=== PATIENT | male | born 1960 | race Caucasian/White ===

== ENCOUNTER 2016-10-16 13:17 | Emergency (ER) | payer OTHER ==
[~2016-10-16] VITALS: Ht 172.7 cm; Wt 93.9 kg
[~2016-10-16 13:17] MED LIST: ATOR-22 PO; DABI1CAP PO; FLEC150T PO; METO100T44 PO; POTA20TA16 PO; TRAZ50TA35 PO
[2016-10-16 13:23] VITALS: TEMP 36.5; Ht 172.7 cm; Wt 93.9 kg
[2016-10-16] MEDS ORDERED: SODIUM CHLORIDE 0.9% 1000ML 1,000 ML IV STA (13:30)
--- NOTE | 2016-10-16 13:34 | EMERGENCY ROOM VISIT NOTE ---
History Report prepared by Nidhi: Sandy Alcaraz Under the Supervision of: Dr. Derek Sinclair M.D. First contact with patient: 13:24 Chief Complaint: IRREGULAR HEARTBEAT Stated Complaint: A-FIB, SOB Nursing Triage Summary: triage note: Pt reports "my heart is in atrial fibrillation, it woke me up last night." History of Present Illness The patient is a 56 year old male who presents to the Emergency Room with complaints of an episode of atrial fibrillation beginning last night. The patient was woken up by the irregular heartbeat. He states that this has happened before many times. He has been cardioverted 7 times with the last time being a few years ago. He is followed by Dr. Ferrell - Cardiology. The patient is experiencing weakness, fatigue and shortness of breath. He states that these symptoms are similar to his past experiences. Source of History: patient Onset: last night Position: other (global) Quality: other (atrial fibrillation) Timing: other (episode) Associated Symptoms: + SOB, + fatigue, + weakness Review of Systems See HPI for pertinent positives & negatives. A total of 10 systems reviewed and were otherwise negative. Past Medical & Surgical Medical Problems: (1) Atrial Fibrillation (2) Esophageal Reflux (3) Hypertension Nos (4) Pneumonia, Organism Nos Family History Hypertension Social History Smoking Status: Current Every Day Smoker Alcohol Use: none Drug Use: none Marital Status: single Housing Status: lives alone Occupation Status: employed Current/Historical Medications Scheduled Atorvastatin (Lipitor), 20 MG PO HS Dabigatran Etexilate Mesylate (Pradaxa), 150 MG PO BID Flecainide Acetate (Flecainide Acetate), 150 MG PO BID Metoprolol Succ (Toprol Xl) (Toprol-Xl ), 100 MG PO BID Potassium Ext Rel (Klor-Con), 20 MEQ PO DAILY Allergies Coded Allergies: Sulfa Drugs (Verified Allergy, Severe, HIVES, 06/01/09) Physical Exam Vital Signs Date Time Temp Pulse Resp B/P (MAP) Pulse Ox O2 Delivery O2 Flow Rate FiO2 10/16/16 15:14 72 18 128/93 95 10/16/16 14:08 96 Room Air 10/16/16 13:40 78 10/16/16 13:30 108 10/16/16 13:23 36.5 127 18 130/81 93 Room Air Physical Exam GENERAL: Patient is well appearing and mildly anxious. HEENT: No acute trauma, normocephalic atraumatic, mucous membranes dry, no nasal congestion, no scleral icterus. NECK: No stridor, no adenopathy, no meningismus, trachea is midline. LUNGS: No dyspnea. Clear to auscultation and equal bilaterally. No wheeze, no rhonchi. HEART: Tachycardic rate and irregular rhythm. No murmurs, rubs, gallops appreciated. ABDOMEN: Soft, nontender, bowel sounds positive, no masses appreciated, no peritonitis. BACK: No midline tenderness, no CVA tenderness EXTREMITIES: Normal motion all extremities, no cyanosis, no edema. NEUROLOGIC: Alert and oriented, no acute motor or sensory deficits, no focal weakness, cranial nerves grossly intact. SKIN: No rash, no jaundice, no diaphoresis. Medical Decision & Procedures ER Provider Diagnostic Interpretation: X ray results are stated below per my interpretation and the radiologist's interpretation. CHEST ONE VIEW PORTABLE HISTORY: Atypical Chest Pain COMPARISON: Chest 01/07/2013. FINDINGS: The lungs are clear. Cardiac silhouette is normal in size. No pleural effusions. No pneumothorax. Old left clavicle fracture. IMPRESSION: No acute process. Electronically signed by: Tani Barrios M.D. 10/16/2016 1:52 PM Dictated Date/Time: 10/16/2016 1:51 PM Laboratory Results 10/16/16 13:43 Red Blood Count 5.13, Mean Corpuscular Volume 87.7, Mean Corpuscular Hemoglobin 31.0, Mean Corpuscular Hemoglobin Concent 35.3, Mean Platelet Volume 10.3, Neutrophils (%) (Auto) 64.5, Lymphocytes (%) (Auto) 26.3, Monocytes (%) (Auto) 7.4, Eosinophils (%) (Auto) 1.1, Basophils (%) (Auto) 0.3, Neutrophils # (Auto) 7.55, Lymphocytes # (Auto) 3.08, Monocytes # (Auto) 0.86, Eosinophils # (Auto) 0.13, Basophils # (Auto) 0.03 10/16/16 13:43 Test 10/16/16 13:43 White Blood Count 11.70 K/uL (4.8-10.8) Red Blood Count 5.13 M/uL (4.7-6.1) Hemoglobin 15.9 g/dL (14.0-18.0) Hematocrit 45.0 % (42-52) Mean Corpuscular Volume 87.7 fL (80-100) Mean Corpuscular Hemoglobin 31.0 pg (25-34) Mean Corpuscular Hemoglobin Concent 35.3 g/dl (32-36) Platelet Count 261 K/uL (130-400) Mean Platelet Volume 10.3 fL (7.4-10.4) Neutrophils (%) (Auto) 64.5 % Lymphocytes (%) (Auto) 26.3 % Monocytes (%) (Auto) 7.4 % Eosinophils (%) (Auto) 1.1 % Basophils (%) (Auto) 0.3 % Neutrophils # (Auto) 7.55 K/uL (1.4-6.5) Lymphocytes # (Auto) 3.08 K/uL (1.2-3.4) Monocytes # (Auto) 0.86 K/uL (0.11-0.59) Eosinophils # (Auto) 0.13 K/uL (0-0.5) Basophils # (Auto) 0.03 K/uL (0-0.2) RDW Standard Deviation 44.2 fL (36.4-46.3) RDW Coefficient of Variation 13.7 % (11.5-14.5) Immature Granulocyte % (Auto) 0.4 % Immature Granulocyte # (Auto) 0.05 K/uL (0.00-0.02) Prothrombin Time 12.0 SECONDS (9.0-12.0) Prothromb Time International Ratio 1.1 (0.9-1.1) Activated Partial Thromboplast Time 58.8 SECONDS (21.0-31.0) Partial Thromboplastin Ratio 2.3 Anion Gap 10.0 mmol/L (3-11) Est Creatinine Clear Calc Drug Dose 97.4 ml/min Estimated GFR () 105.2 Estimated GFR (Non- 90.8 BUN/Creatinine Ratio 10.5 (10-20) Calcium Level 8.8 mg/dl (8.5-10.1) Magnesium Level 2.1 mg/dl (1.8-2.4) Total Creatine Kinase 159 U/L (39-308) Creatine Kinase MB 3.1 ng/ml (0.5-3.6) Creatine Kinase MB Ratio 1.9 (0-3.0) Troponin I < 0.015 ng/ml (0-0.045) Thyroid Stimulating Hormone (TSH) 0.778 uIu/ml (0.300-4.500) Free Thyroxine 1.07 ng/dl (0.80-1.60) Laboratory results as reviewed by me. Medications Administered Medications (Trade) Dose Ordered Sig/Ric Route Start Time Stop Time Status Last Admin Dose Admin Sodium Chloride 1,000 ml @ 999 mls/hr Q1H1M STAT IV 10/16/16 13:30 10/16/16 14:30 DC 10/16/16 13:55 999 MLS/HR ECG Indication: palpitations Rate (beats per minute): 96 Rhythm: atrial fibrillation Findings: no acute ischemic change, other (QTC 416) Change: 2nd ECG: NSR, rate of 67, no ectopy, no acute ischemic changes. ED Course 1326: The patient was evaluated in room A2. A complete history and physical exam was performed. 1330: Sodium Chloride 1,000 ml @ 999 mls/hr IV. 1338: Dr. Ferrell - Cardiology was paged but is out of town this week. 1359: The patient has returned to normal sinus rhythm. 1445: Reevaluated the patient. Discussed results and discharge instructions: He verbalized understanding and agreement. The patient is ready for discharge. Medical Decision Differential: NSR, SVT, PACs, PVCs, Cardiac Dysrhythmia, Endocrine Dysfunction, Electrolyte/Metabolic Abnormality, Pulmonary Embolism, Infectious, GI, amonst other pathologies entertained. Medication Reconciliation: I attest that I have personally reviewed the patient 's current medication list. 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 56 y rold male arrives in afib noting he can tell. He is without other symptoms. Admits exertion in heat last few days. Afib resolved in ED with fluids and he is requesting discharge. Labs unremarkable. Feeling well. Knows this well and feels comfortable going home. Already on blood thinner. Stable at discharge and in no distress. Impression Primary Impression: PAF (paroxysmal atrial fibrillation) Scribe Attestation The scribe's documentation has been prepared under my direction and personally reviewed by me in its entirety. I confirm that the note above accurately reflects all work, treatment, procedures, and medical decision making performed by me. Departure Information Dispostion Home / Self-Care Referrals Dave Palma M.D. (PCP) Patient Instructions My [facility] Additional Instructions Keep well hydrated and avoid over exertion the next 24 hours. We are always here to help if symptoms return. Your blood pressure was elevated during this visit. This is quite common in many people who are being evaluated in the Emergency Department for many reasons. However, it is important that you have your Primary Care Provider recheck your blood pressure and discuss whether treatment will be needed. 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 If you develop severe headaches, chest pain, weakness in arms or legs, or other concerning symptoms call 911.
--- NOTE | 2016-10-16 13:54 | DIAGNOSTIC IMAGING REPORT ---
CHEST ONE VIEW PORTABLE HISTORY: Atypical Chest Pain COMPARISON: Chest 01/07/2013. FINDINGS: The lungs are clear. Cardiac silhouette is normal in size. No pleural effusions. No pneumothorax. Old left clavicle fracture. IMPRESSION: No acute process. Electronically signed by: Tani Barrios M.D. 10/16/2016 1:52 PM Dictated Date/Time: 10/16/2016 1:51 PM
[2016-10-16 14:00] LABS: BASO % 0.3 %; BASO ABS # 0.03 K/uL (0-0.2); COMPLETE YES; EOS % 1.1 %; IG% 0.4 %; LYMPH % 26.3 %; LYMPH ABS # 3.08 K/uL (1.2-3.4); MEAN CELL VOLUME 87.7 fL (80-100); MEAN CORPUSCULAR HGB CONC 35.3 g/dl (32-36); MEAN PLATELET VOLUME 10.3 fL (7.4-10.4); MONO % 7.4 %; NEUT % 64.5 %; PLATELET COUNT 261 K/uL (130-400); RED BLOOD COUNT 5.13 M/uL (4.7-6.1)
[2016-10-16 14:08] VITALS: O2SAT 96
[2016-10-16 14:17] LABS: INR 1.1 (0.9-1.1)
[2016-10-16 14:23] LABS: BLOOD UREA NITROGEN 10 mg/dl (7-18); BUN/CREATININE RATIO 10.5 (10-20); CALCIUM 8.8 mg/dl (8.5-10.1); CARBON DIOXIDE 22 mmol/L (21-32); CHLORIDE 109 mmol/L (98-107); CREATININE 0.93 mg/dl (0.60-1.40); GLUCOSE 112 mg/dl (70-99); MAGNESIUM 2.1 mg/dl (1.8-2.4); POTASSIUM 4.2 mmol/L (3.5-5.1); SODIUM 141 mmol/L (136-145)
[2016-10-16 14:32] LABS: PARTIAL THROMBOPLASTIN RATIO 2.3
[2016-10-16 14:34] LABS: CKMB/CK RATIO 1.9 (0-3.0); THYROID STIMULATING HORMONE 0.778 uIu/ml (0.300-4.500)
[2016-10-16 15:14] VITALS: BP 128/93; PULSE 72; O2SAT 95
== END 2016-10-16 15:03 | disposition home or self-care (01) ==
LOC: C.EDB 13:18 → C.EDA 15:03
DX: I48.91 Unspecified atrial fibrillation (principal); K21.9 Gastro-esophageal reflux disease without esophagitis; I10 Essential (primary) hypertension; F17.200 Nicotine dependence, unspecified, uncomplicated; Z79.899 Other long term (current) drug therapy; Z88.2 Allergy status to sulfonamides; Z82.49 Family history of ischemic heart disease and other diseases of the circulatory system

== ENCOUNTER 2018-08-30 09:08 | Inpatient (IN) ==
--- OUTSIDE RECORDS SUMMARY | 2018-08-30 09:11 | External Medical Summary | Continuity of Care Document ---
:1960 Author Name Aashish Olivo, Provider Address Unavailable Unavailable , Care Team Providers Name Role Phone Rashid Gandhi PA-C Unavailable [email or web address] Colleen Saldana PA-C Unavailable [email or web address] Alexander WILLIS Unavailable [email or web address] Martínez Ferrell M.D. Unavailable [email or web address] Karen ALVAREZ M.D. 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) Encounter for screening for malignant neoplasm of prostate ( V76.44) (Z12.5) Encounter for screening for malignant neoplasm of colon (V76 .51) (Z12.11) Strain, infraspinatus (840.3) (S46.919A) Dyslipidemia (272.4) (E78.5) Paroxysmal atrial fibrillation (427.31) (I48.0) Hypertension (401.9) (I10) On anticoagulant therapy (V58.61) (Z79.01) Plantar fasciitis, right (728.71) (M72.2) Low back pain radiating to right leg (724.2) (M54.5) Allergies and Adverse Reactions Sulfa Drugs (Allergy) Reaction: Hives Medications Flecainide Acetate 150 MG Oral Tablet; TAKE ONE TABLET BY MOUTH EVERY 12 HOURS ALBA Munoz Start: 19-Jan-2013 Quantity: 60 Refills: 11 Klor-Con M20 20 MEQ Oral Tablet Extended Release; TAKE ONE TABLET BY MOUTH ONCE DAILY ALBA Gandhi Start: 11-Jul-2013 Quantity: 30 Refills: 5 Metoprolol Succinate ER 100 MG Oral Tabl et Extended Release 24 Hour; TAKE ONE TABLET BY MOUTH TWICE DAILY ALBA Gandhi Start: 02-Aug-2013 Quantity: 60 Refills: 11 Eliquis 5 MG Oral Tablet; TAKE 1 TABLET BY MOUTH TWICE DAILY Geovani Ferrell Start: 15-Mar-2018 Quantity: 60 Refills: 11 Atorvastatin Calcium 20 MG Oral Tablet; take 1 tablet by mouth once daily ALBA Saldana Start: 25-Mar-2018 Quantity: 30 Refills: 5 Vitamin C TABS; TAKE 1 TABLET DAILY. Refills: 0 Procedures In-House EKG ([facility]) Total Component Date: 16-Aug-2018 History of Atrial Cardioversion Status: Completed Immunizations Influenza On: 26-Feb-2011 15:26 Lot #: [id number], [employer]UR Influenza On: 25-Jan-2013 14:11 Lot #: [id number], [employer]FI PASTEUR Family History Brother Family history of Hemochromatosis Status: Active Mother Family history of Paroxysmal Atrial Fibrillation Status: Act todd Social History - Smoking Status Former smoker Interventions Labs/Procedures/ImagingIn-House EKG ([facility]) Total Component; To Be Done: 16 Aug 2018InstructionsHigh-BMI is above normal parameters and patient education given regarding risks of abnormal BMI and associated educational information links. Patient offered dietitian referral.; Done: 16 Aug 2018Discussion/Summary #1. Atrial fibrillation: He continues to have occasional episodes of atrial fibrillation, but it would be very difficult to eliminate them entirely and I do not think we should try. Other family members have had atrial fibrillation and he is not terribly interested in more aggressive approach and neither do I think we should do that now. He should remain on anticoagulation, although with his [id number] score and brief episodes we might be able to get by without it but it is a potential risk. He issatisfied with his current treatment. #2. His blood pressure has been for the most part well controlled on minimal antihypertensives which we need also for rate control. #3. Anticoagulation: He is on Eliquis, he had been getting samples from a physician he knew but ricarda longer can get them from that source. Hopefully he can afford the medication and we are sending it in for him to see how much it would cost. He is not having any side effects on it nor is he having any bleeding. I would like him to come back in for followup in 12 months. Thank you for allowing me to participate in his care. Plan of Treatment Planned Encounters Follow-up visit in 1 year Request Planned Observations Planned Goals not documented Results In-House EKG ([facility]) Total Laboratory: [facility] Component (Pending) 16-Aug-2018 10:08 In-House EKG Total Component [facility]-Cardio logy Test Date: [id number] Name: ALEKSANDRA PALM Detment: Room: Gender: Male Real Estate Executive Assistant: Nilson DominguezB: 1960 Requested By: Anaya Ramires Number: [id number] Reading MD: Seth Ferrell MeasurementsIntervals [place] Rate: 54 P: 5 5PR: 185 QRS: 60QRSD: 97 T: 35QT: 396 QTc: 383 Interpretive StatementsSINUS BRADYCARDIABORDERLINE ECGReviewed by Comed to ECG 01/13/2017 10:29:03Sinus rhythm no longer presentSi nus arrhythmia no longer present Vital Signs 16-Aug-2018 9:53 Systolic 124 mm[Hg] Comments: Location: LUE; Position: Sitting Diastolic 90 mm[Hg] Comments: Location: LUE; Position: Sitting Heart Rate 64 /min Comments: Location: L Radial; Height 67.75 in Weight 210.4 lb BMI Calculated 32.23 kg/m2 BSA Calculated 2.08 m2 Encounters Appointment; Seth Ferrell M.D. 21-Apr-2018 10:00 Encounter Diagnosis: Problem not documented Appointment; Bre Oconnell CRNP 15-Mar-2018 9:00 Encounter Diagnosis: Problem not documented Appointment; Seth Ferrell M.D. 08-Feb-2018 13:00 Encounter Diagnosis: Problem not documented Appointment; Seth Ferrell M.D. 13-Jan-2017 10:30 Encounter Diagnosis: Problem not documented Appointment; Echo/Stress, Echo/Stress 06-Jan-2017 11:00 Encounter Diagnosis: Problem not documented Appointment; Bre Oconnell CRNP 30-Dec-2016 13:00 Encounter Diagnosis: Problem not documented Appointment; Seth Ferrell M.D. 16-Aug-2018 10:00 Encounter Diagnosis: Problem not documented
[2018-08-30] MEDS ORDERED: SODIUM CHLORIDE 0.9% 1000ML 1,000 ML IV SCH (09:30)
--- NOTE | 2018-08-30 09:49 | XRay Report ---
XR chest 1V portable CLINICAL HISTORY: Chest Pain dyspnea COMPARISON STUDY: 10/16/2016 FINDINGS: The bones soft tissues and hemidiaphragms are normal. The cardiomediastinal silhouette is n ormal. The lungs are clear. The pulmonary vasculature is normal. IMPRESSION: Negative chest. The above report was generated using voice recognition software. It may contain grammatical, syntax or spelling errors. Electronically signed by: Awais Abernathy M.D. 08/30/2018 9:47 AM
[2018-08-30 09:50] LABS: Alanine Aminotransferase 35 U/L (12-78); Albumin Level 3.6 gm/dl (3.4-5.0); Aspartate Aminotransferase 29 U/L (15-37); BUN Creatinine Ratio 12.3 (10-20); Blood Urea Nitrogen 10 mg/dl (7-18); Calcium 8.8 mg/dl (8.5-10.1); Carbon Dioxide 21 mmol/L (21-32); Chloride 110 mmol/L (98-107); Creatinine Clr Calc Pharmacy 102.8 ml/min; Est GFR (African American) 110.5; Est GFR (Non-African American) 95.4; Glucose 131 mg/dl (70-99); Potassium 4.1 mmol/L (3.5-5.1); Sodium 140 mmol/L (136-145)
[2018-08-30 09:55] LABS: Alkaline Phosphatase 76 U/L (45-117); Bilirubin,Total 0.4 mg/dl (0.2-1); Globulin 3.5 gm/dl (2.5-4.0); Total Protein 7.1 gm/dl (6.4-8.2); Troponin I < 0.015 ng/ml (0-0.045)
[2018-08-30 09:56] LABS: Prothrombin Time 10.7 Seconds (9.0-12.0)
[2018-08-30 10:05] LABS: Basophils # (auto) 0.03 K/uL (0-0.2); Basophils % (auto) 0.3 %; Eosinophils # (auto) 0.09 K/uL (0-0.5); Eosinophils % (auto) 0.8 %; Hemoglobin 16.8 g/dL (14.0-18.0); Immature Granulocytes # (auto) 0.06 K/uL (0.00-0.02); Immature Granulocytes % (auto) 0.5 %; Lymphocytes # (auto) 2.14 K/uL (1.2-3.4); Lymphocytes % (auto) 18.3 %; Mean Corpuscular Volume 87.8 fL (80-100); Mean Platelet Volume 10.7 fL (7.4-10.4); Monocytes # (auto) 0.75 K/uL (0.11-0.59); Monocytes % (auto) 6.4 %; Neutrophils # (auto) 8.62 K/uL (1.4-6.5); Neutrophils % (auto) 73.7 %; Platelet Count 277 K/uL (130-400); RDW Coefficient of Variation 13.7 % (11.5-14.5); RDW Standard Deviation 43.9 fL (36.4-46.3); Red Blood Count 5.47 M/uL (4.7-6.1); White Blood Count 11.69 K/uL (4.8-10.8)
[2018-08-30] MEDS ORDERED: dilTIAZem HCl 125 MG in DEXTROSE 5% 100 ML IV SCH (10:45)
[2018-08-30] MEDS ORDERED: dilTIAZem HCl 5 MG/ML 5 ML VIAL IV STA (10:45)
--- NOTE | 2018-08-30 11:07 | History & Physical Report ---
Date of Service August 30, 2018 Assessment & Plan (1) A-fib: - Admit to tele - Afib with RVR today, paroxysmal for many years: Follows with Dr. Ferrell as an outpatient - it was discussed at his last outpatient appointment that he was not interested in more aggressive therapy to prevent episodes and was going to continue on anticoagulation with Eliquis 5 mg BID , however pt is open to cardioversion as he has underwent this multiple times in the past where it was successful for longer periods of time. Last cardioversion 01/07/13. - Trend trop, initial was negative. - 2D echo - Continue diltiazem gtt for now - continue metoprolol succinated 100 mg BID, flecainide 150 mg Q12H - Cardiology consult - discussed with Dr. Ferrell and will attempt to coordinate cardioversion with anesthesia for today since the patient has been NPO since last evening. (2) Hypertension: - Well controlled (3) Chronic anticoagulation: - Eliquis as above (4) HLD (hyperlipidemia): - Cont atorvastatin 20 mg daily (5) Tobacco use: - 1 pp week per pt report - has not been well enough to smoke recently. Cessation encouraged. Nicotine patch offered but pt denied need. (6) History of alcoholism: - Sober since 2008 (7) DVT prophylaxis: - tedsc, scds, eliquis History of Present Illness Primary Care Provider: Dave Palma MD This is a 58 yo M PMHx of paroxysmal atrial fibrillation, HTN, HLD, dental abscess who presents with worsening overall feeling, shortness of breath, lightheadedness. Pt reports his afib goes in and out all the time, however last evening felt "the worst I ever have". He has been taking medications as specified and not missing doses. Pt notes he has been struggling with a dental abscess on the left lower jaw line for which he sought care at an Urgent Care center and was placed on Augmentin, started on 08/27/18, he did not take antibiotic today, but did take other cardiac medications. Pt notes being cardioverted 7x in the past and is questioning if this can be done again. He has not eaten or drank much due to the dental abscess and pain, last PO intake was last evening. He has been using tylenol for pain relief. Allergies Allergy/AdvReac Type Severity Reaction Status Date / Time Sulfa (Sulfonamide Allergy Severe HIVES Verified 08/30/18 11:01 Antibiotics) Home Medications Home Medications Medication Instructions Recorded Confirmed Type metoprolol succinate 100 mg PO BID #0 09/07/12 08/30/18 History atorvastatin 20 mg PO DAILY #0 tab 07/20/13 08/30/18 History flecainide 150 mg PO Q12H #0 07/20/13 08/30/18 History potassium chloride 20 meq PO DAILY #0 tab 07/20/13 08/30/18 History amoxicillin-pot clavulanate 1 tab PO BID 08/30/18 08/30/18 History [Augmentin] apixaban [Eliquis] 5 mg PO BID 08/30/18 08/30/18 History tramadol 50 mg PO Q6H PRN 08/30/18 08/30/18 History Past Med/Surg History Medical History History of alcoholism Tobacco use HLD (hyperlipidemia) Chronic anticoagulation Hypertension A-fib Social History Preferred Language: Slovak Communication Ability: Effective 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 Beliefs That Will Affect Care: None Current Living Situation: Alone Other Information That Helps Us Care for You: No Feels Safe at Home: Yes Safety Concerns: Feels Safe At This Time Smoking Status: Current some day smoker Tobacco Type: cigarettes Cigarettes Per Day: 1 pack a week, 2 to 3 a day Do You Dip or Chew Tobacco: No Second Hand Exposure: No Tobacco Cessation Education Requested by Patient: No Hx Alcohol Use: No Hx Substance Use: No Review of Systems Review of Systems: Constitutional: No fever, sweats or chills Eyes: No diplopia, no worsening or blurred vision ENT: normal hearing, no trouble swallowing, + dental pain as per HPI. Respiratory: No cough, sputum, + dyspnea at rest and on exertion Cardiovascular: No chest pain, tightness or palpitations Abdomen: No pain, nausea, vomiting, diarrhea or constipation Musculoskeletal: No joint pain, calf pain, swelling Neurologic: No weakness, numbness/tingling, or balance problems Psychiatric: No anxiety or depression Skin: No rash or itch Physical Exam Physical Exam: General: awake, alert, no apparent distress, + smells of tobacco smoke Head: Normocephalic, atraumatic ENT: PERRL, EOMI, + poor dentition, L lower jaw with minimal surrounding erythema, no visible purulent drainage. Otherwise no pharyngeal exudate, mucous membranes moist Chest: Clear to auscultation, on room air, no adventitious breath sounds Cardiac: Irregularly irregular, no murmur, no JVD, normal peripheral pulses, good capillary refill Abdominal: NABS x 4 quadrants, soft, nontender to palpation, no rebound, guarding or tenderness Extremities: Normal inspection, no peripheral edema or erythema, calfs nontender to palpation Psych: Normal mood and affect Neuro: AAO x 3, strength intact bilaterally and related 5/5, no motor deficits, speech is clear, no peripheral sensory deficits Results & Data Vital Signs (Past 12 Hours) Vital Signs Temp Pulse Resp BP Pulse Ox 08/30/18 09:09 36.5 C 123 H 24 123/77 96 Diagnostic Findings R chest 1V portable CLINICAL HISTORY: Chest Pain dyspnea COMPARISON STUDY: 10/16/2016 FINDINGS: The bones soft tissues and hemidiaphragms are normal. The cardiomediastinal silhouette is normal. The lungs are clear. The pulmonary vasculature is normal. IMPRESSION: Negative chest. ECG Additional Comments: 30-AUG-2018 09:14:50 [facility]-EDSTAT ROUTINE RETRIEVAL Atrial fibrillation Nonspecific T wave abnormality Abnormal ECG When compared with ECG of 16-OCT-2016 14:04, Atrial fibrillation has replaced Sinus rhythm 25mm/s 10mm/mV 150Hz 9.0.8 12SL 241 SILVANO: 10 Unconfirmed Vent. rate 99 BPM HI interval * ms QRS duration 90 ms QT/QTc 322/413 ms P-R-T axes * 58 -27 Code Status & VTE Plan Code Status Full code Supervising Physician Co-Signing Physician Notes Pt seen/examined in conjunction with EBEN Florence 58 y/o M Hx HTN, HLD, smoker, PAF - 7 prior cardioversions. The pt presented with rapid AF associated with lightheadedness and SOB since the prior jan. He was requesting cardioversion. Rate on arrival 120-140, decreased to 70-100 after a Cardizem bolus. Asymptomatic on admission. OE AAO x 3 S1,2 R CTAB NT, ND, No CCE No deficits P: We have contacted cardiology and they evaluate for potential cardioversion. The pt remains on a Cradizem drip and is anticoagulated with Eliquis. We will continue Atorvastatin and scheduled metoprolol. He is currently receiving a course of antibiotics for a dental abscess
[2018-08-30] MEDS ORDERED: TRAMADOL HCL 50 MG TABLET PO PRN (12:51)
[2018-08-30] MEDS ORDERED: ONDANSETRON INJ 2 MG/ML 2 ML VIAL IV PRN (12:51)
[2018-08-30] MEDS ORDERED: ACETAMINOPHEN 325 MG TAB PO PRN (12:51)
[2018-08-30] MEDS ORDERED: PROPOFOL IV EMULSION 10 MG/ML 20 ML VIAL IV ONE (13:14)
[2018-08-30] MEDS ORDERED: LIDOCAINE HCL 2% 2 ML VIAL/AMP(20MG/ML) INFIL ONE (13:14)
--- NOTE | 2018-08-30 13:15 | Cardiology Consultation ---
Date of Consultation August 30, 2018 Assessment & Plan (1) A-fib: Atrial fibrillation: He continues to have occasional episodes of atrial fibrillation, but it would be very difficult to eliminate them entirely and on his current regimen I do not believe he has had a cardioversion since 2012 so it has been quite successful. Now he is in it in a more sustained manner, about 12 hours, and he feels very uncomfortable. This 1 may be due in part to the stress he is under, although there is a lot of variability or it may mean that now his antiarrhythmics or not working effectively. I think the best option is to convert his rhythm and see how he does, we could try Tikosyn or even amiodarone (although I do not want to do that at his age) but it may be that this will work for a number of more years once we convert him. He has been taking his anticoagulant without interruption. I discussed the indications, procedure, risks and alternatives of cardioversion with him and he understands and agrees to proceed. Consent obtained. History of Present Illness Reason for Consultation: Atrial fibrillation with rapid ventricular response Attending Physician: Kevin Staton MD History of Present Illness This is a very pleasant 58-year-old male who had his initial episode of atrial fibrillation in 2008 and was cardioverted. He had recurrences in June 2009 and January 2011 and was cardioverted both times. He was admitted to [facility] 08/19/12 for rapid atrial fibrillation and successfully cardioverted. He was continued on atenolol and started on pradaxa 150 mg twice a day. He saw Dr. Palma 08/25/12 after having a tachycardic episode the previous evening. Atenolol was changed to metoprolol succinate. He then ended up back in the emergency room with rapid atrial fibrillation 09/07/12 and was successfully cardioverted. He was started on flecainide 50 mg twice a day and continued on Toprol XL 100 mg a.m., 50 mg PM. Initially after starting flecainide he did very well and had no symptoms suggestive of atrial fibrillation, however on January 07, 2013 he was back in the emergency room with recurrent atrial fibrillation. His flecainide was increased to 100 mg twice a day and he was electrically cardioverted back to sinus rhythm and discharged. He then had recurrence of his symptoms in a paroxysmal manner and his flecainide was increased to 150 mg twice a day on January 19, 2013. Since then he has felt considerably better, he still has occasional episodes of atrial fibrillation which he recognizes but has not required cardioversion. He relates them to food that he eats and to stomach upset, he tries to avoid milk and feels that that helps. He believes he had one episode all of last year and then perhaps two this year. They last several hours, he feels sweaty and tired with them but then when he gets up and does activity (which he is able to do despite the arrhythmia) he thinks that that helps them resolve. He presents now with his typical symptoms of atrial fibrillation starting at around 2 AM today. This is on a background of increased stress both financial and he is having a lot of pain from his teeth. As noted above the symptoms usually resolve in a few hours, they did not and he came into the emergency room. He was started on intravenous diltiazem this morning, he remains in atri al fibrillation although is less aware of the arrhythmia. He has been taking his medications including his Eliquis regularly. Allergies Allergy/AdvReac Type Severity Reaction Status Date / Time Sulfa (Sulfonamide Allergy Severe HIVES Verified 08/30/18 11:01 Antibiotics) Home Medications Home Medications Medication Instructions Recorded Confirmed Type metoprolol succinate 100 mg PO BID #0 09/07/12 08/30/18 History atorvastatin 20 mg PO DAILY #0 tab 07/20/13 08/30/18 History flecainide 150 mg PO Q12H #0 07/20/13 08/30/18 History potassium chloride 20 meq PO DAILY #0 tab 07/20/13 08/30/18 History amoxicillin-pot clavulanate 1 tab PO BID 08/30/18 08/30/18 History [Augmentin] apixaban [Eliquis] 5 mg PO BID 08/30/18 08/30/18 History tramadol 50 mg PO Q6H PRN 08/30/18 08/30/18 History Patient History Medical History History of alcoholism Tobacco use HLD (hyperlipidemia) Chronic anticoagulation Hypertension A-fib Social History Preferred Language: Indonesian Communication Ability: Effective 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 HEENT: Unremarkable Neck: No jugular venous distention, carotid pulses are irregular but otherwise normal and equal bilaterally without bruits. Pulmonary: Clear to auscultation bilaterally. Cardiac: Irregular rhythm with no murmur, gallop or rub. Abdomen: Soft, nontender with normal bowel sounds. Extremities: No edema. Distal pulses intact. Neurologic: No focal findings. Gait is steady. Skin: No rash, ecchymoses or petechiae. Results & Data Vital Signs (Past 12 Hours) Vital Signs Temp Pulse Pulse Resp BP BP Pulse Ox 08/30/18 12:23 91 H 18 122/78 94 08/30/18 12:00 103 H 17 119/87 94 08/30/18 11:30 94 H 17 117/95 95 08/30/18 11:15 122 H 19 102/69 97 08/30/18 11:11 90 18 96/73 L 96 08/30/18 09:09 36.5 C 123 H 24 123/77 96 Diagnostic Findings Initial electrocardiogram shows atrial fibrillation with a heart rate of 99 bpm, no acute changes Telemetry: Atrial fibrillation, initially more rapid and now rate controlled.
[2018-08-30] MEDS ORDERED: FLECAINIDE ACETATE 100 MG TABLET PO SCH (13:30)
--- NOTE | 2018-08-30 13:54 | Anesthesiology Consultation ---
Date of Service August 30, 2018 Assessment & Plan (1) Encounter for pre-operative examination: Chart Review Chart Review: Acceptable Risk for Surgery and Patient NOT seen in Pre Admission Testing Consults Requested none History Surgery Operation Date: 08/30/18 13:00 Proposed Procedures p Cardioversion Assistant Food Service Manager w/Anesthesia - Seth Ferrell MD Height/Weight Height: 5 ft 7 in Weight: 95 kg Allergies Allergy/AdvReac Type Severity Reaction Status Date / Time Sulfa (Sulfonamide Allergy Severe HIVES Verified 08/30/18 11:01 Antibiotics) Medications Home Medications Medication Instructions Recorded Confirmed Last Taken metoprolol succinate 100 mg PO BID #0 09/07/12 08/30/18 08/30/18 05:00 atorvastatin 20 mg PO DAILY #0 tab 07/20/13 08/30/18 08/30/18 05:00 flecainide 150 mg PO Q12H #0 07/20/13 08/30/18 08/30/18 05:00 potassium chloride 20 meq PO DAILY #0 tab 07/20/13 08/30/18 08/30/18 05:00 amoxicillin-pot clavulanate 1 tab PO BID 08/30/18 08/30/18 08/30/18 05:00 [Augmentin] apixaban [Eliquis] 5 mg PO BID 08/30/18 08/30/18 08/30/18 05:00 tramadol 50 mg PO Q6H PRN 08/30/18 08/30/18 08/30/18 Active Medications Generic Name Dose Route Start Last Admin Trade Name Freq PRN Reason Stop Dose Admin Diltiazem HCl 125 mg/ Dextrose 125 mls @ 0 mls/hr 08/30/18 10:45 08/30/18 11:28 IV 09/29/18 10:44 5 mg/hr .Q0M GRACE 5 mls/hr Administration Protocol Per Protocol Past Medical History Medical History History of alcoholism Tobacco use HLD (hyperlipidemia) Chronic anticoagulation Hypertension A-fib Social History Smoking Status: Current some day smoker tobacco type: cigarettes Smoking cigarettes per day: 1 pack a week, 2 to 3 a day Do You Dip or Chew Tobacco: No Hx Alcohol Use: No Hx Substance Use: No Physical Exam Vital Signs Last Vital Signs Temp 36.5 C 08/30/18 09:09 Pulse 91 H 08/30/18 12:23 Resp 18 08/30/18 12:23 BP 122/78 08/30/18 12:23 Pulse Ox 94 08/30/18 12:23 Testing Laboratory Results 08/30/18 09:20 08/30/18 09:20 PT 10.7 Seconds (9.0-12.0) 08/30/18 09:20 INR 1.0 (0.9-1.1) 08/30/18 09:20
[2018-08-30] MEDS ORDERED: ePHEDrine sulfate 50 MG/ML AMP IV PRN (14:06)
[2018-08-30] MEDS ORDERED: ATROPINE SULFATE 0.1 MG/ML 10ML SYR IV PRN (14:06)
--- NOTE | 2018-08-30 14:09 | Emergency Department Note ---
Entered by Mohini Cabrera acting as a scribe for History of Present Illness General Chief complaint: Shortness of Breath/Dyspnea Stated complaint: SOB Source: patient Mode of arrival: ambulatory Limitations: no limitations History of Present Illness Provider complaint: palpitations Onset (ago): hour(s) (0100) Location: chest Pain Consistency: + other (persistent) Quality: + other (palpitations) Associated symptoms: + denies other symptoms (abd pain, diarrhea) and + shortness of breath; no chest pain and no nausea/vomiting Treatments prior to arrival: other (Augmentin) The patient is a 58 year old male who presents to the ER with complaints of persistent palpitations that began last night around 0100. He reports that he does have a history of a-fib but denies ever experiencing a similar episode in the past. He states that he does have an associated shortness of breath but denies any chest pain, abdominal pain, nausea, vomiting or diarrhea. He notes that he is on Eliquis and Metoprolol and denies missing any doses. He reports that he has been taking Augmentin for the past 3 days for a persistent tooth pain. He states that this has not had any relief since starting the antibiotic. He does note that he feels extremely rundown weak and tired. Patient has no other complaints at this time. He does Home Medications Home Medications Medication Instructions Recorded Confirmed Type metoprolol succinate 100 mg PO BID #0 09/07/12 08/30/18 History atorvastatin 20 mg PO DAILY #0 tab 07/20/13 08/30/18 History flecainide 150 mg PO Q12H #0 07/20/13 08/30/18 History potassium chloride 20 meq PO DAILY #0 tab 07/20/13 08/30/18 History amoxicillin-pot clavulanate 1 tab PO BID 08/30/18 08/30/18 History [Augmentin] apixaban [Eliquis] 5 mg PO BID 08/30/18 08/30/18 History tramadol 50 mg PO Q6H PRN 08/30/18 08/30/18 History Allergies Allergy/AdvReac Type Severity Reaction Status Date / Time Sulfa (Sulfonamide Allergy Severe HIVES Verified 08/30/18 11:01 Antibiotics) Past Med/Surg History Medical History History of alcoholism Tobacco use HLD (hyperlipidemia) Chronic anticoagulation Hypertension A-fib Social History Preferred Language: Portuguese 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 and A total of 10 systems reviewed and were otherwise negative Physical Exam Vital Signs Vital Signs - 24 hr 08/30/18 09:09 08/30/18 09:40 08/30/18 11:11 Temperature 36.5 C Temperature Source Oral Sepsis Recent Fever Within 48 Hours No Sepsis New/Unexplained Change in Mental Status No Sepsis Action Taken by Nursing No Action Required Pulse Rate 123 H Pulse Rate [Apical] 90 Pulse Rhythm [Apical] Irregular Respiratory Rate 24 18 Respiratory Effort / Characteristics Non-Labored Spontaneous Non-Labored Spontaneous Respiratory Depth Normal Normal Respiratory Pattern Regular Regular Blood Pressure 123/77 Blood Pressure [Right Arm] 96/73 L Blood Pressure Mean 92 Blood Pressure Mean [Right Arm] 80 Pulse Oximetry 96 96 Oxygen Delivery Method Room Air Room Air Room Air 08/30/18 11:15 08/30/18 11:30 08/30/18 12:00 Temperature Temperature Source Sepsis Recent Fever Within 48 Hours Sepsis New/Unexplained Change in Mental Status Sepsis Action Taken by Nursing Pulse Rate Pulse Rate [Apical] 122 H 94 H 103 H Pulse Rhythm [Apical] Irregular Irregular Irregular Respiratory Rate 19 17 17 Respiratory Effort / Characteristics Non-Labored Spontaneous Non-Labored Spontaneous Non-Labored Spontaneous Respiratory Depth Normal Normal Normal Respiratory Pattern Regular Regular Regular Blood Pressure Blood Pressure [Right Arm] 102/69 117/95 119/87 Blood Pressure Mean Blood Pressure Mean [Right Arm] 80 102 97 Pulse Oximetry 97 95 94 Oxygen Delivery Method Room Air Room Air Room Air 08/30/18 12:23 Temperature Temperature Source Sepsis Recent Fever Within 48 Hours Sepsis New/Unexplained Change in Mental Status Sepsis Action Taken by Nursing Pulse Rate 91 H Pulse Rate [Apical] Pulse Rhythm [Apical] Respiratory Rate 18 Respiratory Effort / Characteristics Respiratory Depth Respiratory Pattern Blood Pressure 122/78 Blood Pressure [Right Arm] Blood Pressure Mean Blood Pressure Mean [Right Arm] Pulse Oximetry 94 Oxygen Delivery Method Room Air GENERAL: Sitting up in bed, alert, well appearing, well nourished, no distress, non-toxic EYE EXAM: normal conjunctiva OROPHARYNX: no exudate, no erythema, lips, buccal mucosa, and tongue normal and mucous membranes are moist NECK: supple, no nuchal rigidity, no adenopathy, non-tender LUNGS: Clear to auscultation. Normal chest wall mechanics HEART: Tachycardic. Irregularly irregular. no murmurs, S1 normal and S2 normal ABDOMEN: abdomen soft, non-tender, normo-active bowel sounds, no masses, no rebound or guarding. BACK: Back is symmetrical on inspection and there is no deformity, no midline tenderness, no CVA tenderness. SKIN: no rashes and no bruising UPPER EXTREMITIES: upper extremities are grossly normal. LOWER EXTREMITIES: No pitting edema. Calves are equal bilaterally. NEURO EXAM: Normal sensorium, cranial nerves II-XII grossly intact, normal speech, no gross weakness of arms, no gross weakness of legs. Course ED COURSE: Vital signs were reviewed and showed tachycardia. The patients medical record was reviewed The above diagnostic studies were performed and reviewed. ED treatments and interventions as stated above. 0917: The patient was evaluated in room B7. A complete history and physical examination was performed. 1022: I discussed the patients case with Dr. Ferrell [facility] Cardiology. He recommends starting the patient on Cardizem drip or oral if the patient feels well enough to go home. 1123: I reviewed the patient's case with Dr. Staton. He will evaluate the patient for further management. [id number] discussed my findings with the patient and he understands and agrees with the treatment plan. Based on the patients age, coexisting illnesses, exam and lab findings the decision to treat as an inpatient was made. The patient remained stable while under my care. The patient will be evaluated for further management. Administered Medications Diltiazem HCl 125 mg/ Dextrose 125 mls @ 0 mls/hr IV .Q0M [facility]; Protocol Stop: 09/29/18 10:44 Last Admin: 08/30/18 11:28 Dose: 5 mg/hr, 5 mls/hr Documented by: [id number] Cosigned by: [id number] Discontinued Medications Diltiazem HCl (Cardizem) 5 mg IV NOW STA Stop: 08/30/18 10:46 Last Admin: 08/30/18 11:11 Dose: 5 mg Documented by: [id number] Cosigned by: [id number] Sodium Chloride (Nss 1000ml) 1,000 mls @ 999 mls/hr IV .Q1H1M GRACE Stop: 08/30/18 10:30 Last Infusion: 08/30/18 10:41 Dose: 0 mls/hr Documented by: [id number] Admin: 08/30/18 09:37 Dose: 999 mls/hr Documented by: [id number] Medical Decision Making Differential Diagnosis Differential diagnoses includes but is not limited to pneumonia, bronchitis, COPD/Asthma exacerbation, pneumothorax, pulmonary embolism, congestive heart failure, acute coronary syndrome. Medical Records Attestation: I reviewed the patient's medical records. Home Medications Current Medication List: was personally reviewed by me Laboratory Data Attestation: I reviewed the patient's lab results. Result diagrams: 08/30/18 09:20 08/30/18 09:20 Lab Results 08/30/18 08/30/18 08/30/18 Range/Units 09:20 09:20 09:20 WBC 11.69 H (4.8-10.8) K/uL RBC 5.47 (4.7-6.1) M/uL Hgb 16.8 (14.0-18.0) g/dL Hct 48.0 (42-52) % MCV 87.8 (80-100) fL MCH 30.7 (25-34) pg MCHC 35.0 (32-36) g/dL RDW Std Deviation 43.9 (36.4-46.3) fL RDW Coeff of Mary 13.7 (11.5-14.5) % Plt Count 277 (130-400) K/uL MPV 10.7 H (7.4-10.4) fL Immature Gran % (Auto) 0.5 % Neut % (Auto) 73.7 % Lymph % (Auto) 18.3 % Andrew % (Auto) 6.4 % Eos % (Auto) 0.8 % Baso % (Auto) 0.3 % Immature Gran # (Auto) 0.06 H (0.00-0.02) K/uL Neut # (Auto) 8.62 H (1.4-6.5) K/uL Lymph # (Auto) 2.14 (1.2-3.4) K/uL Andrew # (Auto) 0.75 H (0.11-0.59) K/uL Eos # (Auto) 0.09 (0-0.5) K/uL Baso # (Auto) 0.03 (0-0.2) K/uL PT 10.7 (9.0-12.0) Seconds INR 1.0 (0.9-1.1) Sodium 140 (136-145) mmol/L Potassium 4.1 (3.5-5.1) mmol/L Chloride 110 H (98-107) mmol/L Carbon Dioxide 21 (21-32) mmol/L Anion Gap 9.0 (3-11) BUN 10 (7-18) mg/dl Creatinine 0.85 (0.6-1.4) mg/dl Est Cr Clr Drug Dosing 102.8 ml/min Est GFR ( Amer) 110.5 Est GFR (Non-Af Amer) 95.4 BUN/Creatinine Ratio 12.3 (10-20) Glucose 131 H (70-99) mg/dl Calcium 8.8 (8.5-10.1) mg/dl Total Bilirubin 0.4 (0.2-1) mg/dl AST 29 (15-37) U/L ALT 35 (12-78) U/L Alkaline Phosphatase 76 (45-117) U/L Troponin I < 0.015 (0-0.045) ng/ml Total Protein 7.1 (6.4-8.2) gm/dl Albumin 3.6 (3.4-5.0) gm/dl Globulin 3.5 (2.5-4.0) gm/dl Albumin/Globulin Ratio 1.0 (0.9-2) Lipase 147 (73-393) U/L Imaging Data Radiologist's Impression: Radiology results as stated below per my review and the radiologist's interpretation: XR chest 1V portable CLINICAL HISTORY: Chest Pain dyspnea COMPARISON STUDY: 10/16/2016 FINDINGS: The bones soft tissues and hemidiaphragms are normal. The cardiomediastinal silhouette is normal. The lungs are clear. The pulmonary vasculature is normal. IMPRESSION: Negative chest. The above report was generated using voice recognition software. It may contain grammatical, syntax or spelling errors. Electronically signed by: Awais Abernathy M.D. 08/30/2018 9:47 ECG Data Attestation: I personally reviewed and interpreted this ECG as follows: Indication: palpitations Rate (beats per minute): 99 Rhythm: atrial fibrillation Findings: + other (RVR) and + nonspecific-ST abn (Inferior) Blood Pressure Blood Pressure Findings: Normal blood pressure Blood Pressure Disposition: did not require urgent referral MDM Narrative Patient is a 58-year-old male who presents the ER for feeling his heart race. He has a history of paroxysmal A. fib on flecainide 150 mg twice daily, metoprolol 100 mg twice daily and Eliquis 5 mg. Upon presentation patient has heart rate in the 130s with talking and dropped down to 115s and is resting. EKG confirms A. fib with RVR. Labs show mild leukocytosis of 11.6 thousand. No significant anemia. INR is unremarkable. BMP with LFTs bilirubin troponin and lipase is unremarkable. Chest x-ray was unremarkable. Patient was given a bolus of IV Cardizem and placed on a Cardizem drip. Discussed with cardiology and patient was admitted for possible medical cardioversion on a Cardizem drip. Heart rate was improving. Impression & Plan Atrial fibrillation with RVR, Shortness of breath Critical Care Time I have personally spent 35 minutes of critical care time in the direct management of this patient. This includes bedside care, interpretation of diagnostic studies, and testing, discussion with consultants, patient, and family members, and other required patient management activities. This 35 minutes is in excess of all separately billable procedures. Critical Care Time: Yes Total Critical Care Time: 35 Discharge Plan Visit Data *Final* Discharge Date/Time: 08/30/18 12:23 Chief Complaint: Shortness of Breath/Dyspnea Stated Complaint: SOB ED Provider: Gregg Teixeira Discharge Problem: Atrial fibrillation with RVR, Shortness of breath Patient Disposition: Admitted As Inpatient Discharge Instructions Interventions: ED Discharge Assessment Last Done: 08/30/18 12:23 The scribe's documentation has been prepared under my direction and personally reviewed by me in its entirety. I confirm that the note above accurately reflects all work, treatment, procedures, and medical decision making performed by me.
--- NOTE | 2018-08-30 14:10 | Cardioversion ---
Date of Service August 30, 2018 Electrical Cardioversion Rpt Electrical Cardioversion Report The patient was brought to the laboratory being NPO after midnight and was identified in the laboratory, connected to the recording apparatus including electrocardiographic monitoring, noninvasive blood pressure monitoring and pulse oximetry. Anteroposterior patch electrodes were placed. The patient was anesthetized by the anesthesia department. Once adequate anesthesia was obtained a synchronized biphasic shock was delivered using 200 J with conversion to a sinus rhythm. The patient awoke from the anesthetic without sequela, will be observed briefly and then discharged.
--- NOTE | 2018-08-30 14:12 | Anesthesiology Progress Note ---
Date of Service August 30, 2018 Anesthesia Post Procedure Vital Signs Vital Signs: Temp Pulse Pulse Resp BP BP Pulse Ox 08/30/18 12:23 91 H 18 122/78 94 08/30/18 12:00 103 H 17 119/87 94 08/30/18 11:30 94 H 17 117/95 95 08/30/18 11:15 122 H 19 102/69 97 08/30/18 11:11 90 18 96/73 L 96 08/30/18 09:09 36.5 C 123 H 24 123/77 96 Transfer of Care Handoff Completed per policy Notes Mental Status: alert / awake / arousable Patient Amnestic to Procedure: Yes Nausea / Vomiting: adequately controlled Pain: adequately controlled Airway Patency, RR, SpO2: stable & adequate BP & HR: stable & adequate Hydration State: stable & adequate Anesthetic Complications: no major complications apparent and Pt Satisfied with anesthetic care
--- NOTE | 2018-08-30 14:53 | Discharge Summary ---
Date of Service August 30, 2018 Admission HPI Per Admitting Provider This is a 58 yo M PMHx of paroxysmal atrial fibrillation, HTN, HLD, dental abscess who presents with worsening overall feeling, shortness of breath, lightheadedness. Pt reports his afib goes in and out all the time, however last evening felt "the worst I ever have". He has been taking medications as specified and not missing doses. Pt notes he has been struggling with a dental abscess on the left lower jaw line for which he sought care at an Urgent Care center and was placed on Augmentin, started on 08/27/18, he did not take antibiotic today, but did take other cardiac medications. Pt notes being cardioverted 7x in the past and is questioning if this can be done again. He has not eaten or drank much due to the dental abscess and pain, last PO intake was last evening. He has been using tylenol for pain relief. Principal Diagnosis Afib with RVR s/p cardioversion Discharge Exam Same as admitting exam except for the following: General: Alert, comfortable, NAD Cardiac: NSR, HR in 70s. Respiratory: On room air, clear. Discharge Data Allergies Allergy/AdvReac Type Severity Reaction Status Date / Time Sulfa (Sulfonamide Allergy Severe HIVES Verified 08/30/18 11:01 Antibiotics) Consultations 08/30/18 10:50 ED Decision to Admit Stat 08/30/18 11:00 ED Decision to Admit Stat 08/30/18 12:51 Consult Cardiology Routine Consult Case Management - Discharge Planning Routine Procedures Performed Operation Date: 08/30/18 13:00 Actual Procedures p Cardioversion - Seth Ferrell MD Hospital Course (1) A-fib: - Admitted to tele - Afib with RVR today, paroxysmal for many years: Follows with Dr. Ferrell as an outpatient - it was discussed at his last outpatient appointment that he was not interested in more aggressive therapy to prevent episodes and was going to continue on anticoagulation with Eliquis 5 mg BID , however pt is open to cardioversion as he has underwent this multiple times in the past where it was successful for longer periods of time. Last cardioversion 01/07/13. - Troponin was initially negative - 2D echo completed - Continue diltiazem gtt for now - continue metoprolol succinated 100 mg BID, flecainide 150 mg Q12H - Cardiology consulted - discussed with Dr. Ferrell Pt underwent synchronized cardioversion with anesthesia on 08/30/18 Continue all home medications as currently dosed per cardiology recommendation Follow up with cardiology within 2-4 weeks. (2) Hypertension: - Well controlled (3) Chronic anticoagulation: - Eliquis as above (4) HLD (hyperlipidemia): - Cont atorvastatin 20 mg daily (5) Tobacco use: - 1 pp week per pt report - has not been well enough to smoke recently. Cessation encouraged. Nicotine patch offered but pt denied need. (6) History of alcoholism: - Sober since 2008 (7) DVT prophylaxis: - tedsc, scds, eliquis Total Time Total Time Spent Total Time Spent (In Minutes): 34 minutes Discharge Plan Discharge Items Patient Disposition: Home - Self-Care Reason For Visit: AFIB WITH RVR Discharge Diagnosis: Atrial fibrillation with rapid ventricular response (RVR), cardioversion Discharge Goals: Decrease discomfort, Improve disease control and Learn about illness Activity: Resume your previous activity Lifting: Gradually increase as tolerated Bathing: No limitations Sexual Activity: When tolerated Exercise/Sports: Rest today and Gradually increase as tolerated Driving/Machine Use: No limitations Non-emergency contact: Primary Care Provider Call non-emergency contact if: you have any medication questions, your symptoms worsen and your temperature is above 100.5 Follow-up/Referrals: Emanuel Palma MD [Primary Care Provider] - 08/31/18 2:30 pm (Please, follow up with Dr. Palma TOMORROW, ThursdayAugust 31 at 2:30 pm. *If you need to change this appointment, call his office at [phone].) Seth Ferrell MD [Physician] - 09/14/18 11:30 am (Please, follow up with Dr. Ferrell on ThursdaySeptember 14 at 11:30 am. *If you need to change this appointment, call the office at [phone].) Diet: Heart Healthy Addtl Provider Instructions: You were admitted to [facility] due to atrial fibrillation with rapid ventricular response and diagnosed with the same. During your stay here you were treated with supportive care, diltiazem intravenously, and were cardioverted to shock heart rhythm into normal sinus rhythm, and your symptoms improved. Imaging studies which were completed include Echocardiogram and an EKG. Medications: Continue taking you medications as prescribed. There were no medication changes made today. Appointments: Follow up with PCP within 1 week, an appointment has been requested for you. Follow up with Cardiology within 2-4 weeks, an appointment has been requested for you. Prescriptions: Continued metoprolol succinate 100 mg Tablet Extended Release 24 Hr 100 mg PO BID Qty: 0 RF: 0 atorvastatin 20 mg Tablet 20 mg PO DAILY Qty: 0 RF: 0 flecainide 150 mg Tablet 150 mg PO Q12H Qty: 0 RF: 0 potassium chloride 20 mEq Tablet Extended Release 20 meq PO DAILY Qty: 0 RF: 0 tramadol 50 mg Tablet 50 mg PO Q6H PRN (Reason: Pain) RF: 0 amoxicillin-pot clavulanate [Augmentin] 875-125 mg Tablet 1 tab PO BID RF: 0 Eliquis 5 mg Tablet 5 mg PO BID RF: 0 Stand-Alone Forms: [facility], Work/School Release (Inpt) Discharge Orders: Discharge Order (Routine); Ordered 08/30/18 Ordered By: Denisse Vides Admission Data Admit Date/Time: 08/30/18 11:39 Attending Provider: Kevin Staton Admit Provider: Kevin Staton Primary Care Provider: Emanuel Palma Other Providers: Alvaro Carter ; Kevin Staton ; Seth Ferrell Service: Telemetry Other Interventions: Discharge Summary Assessment (RN) Last Done: 08/30/18 16:14 Pending Studies at Discharge: No Studies:: Echocardiogram EKG CXR DC Date/Time DO NOT enter until pt leaves facility: 08/30/18 17:50 Supervising Physician Co-Signing Physician Notes This pt underwent an echo and was assessed by cardiology. he reverted to a sinus rhythm a few minutes after Cardizem administration. He will be DCd and follow-up as an outpt. Eliquis and a B chago are recommended.
[2018-08-30] MEDS ORDERED: APIXABAN 5 MG TABLET PO SCH (21:00)
[2018-08-30] MEDS ORDERED: AMOXICILLIN/CLAVULANATE 875 MG TAB PO SCH (21:00)
[2018-08-30] MEDS ORDERED: METOPROLOL SUCC 50MG EXT REL TAB PO SCH (21:00)
[2018-08-31] MEDS ORDERED: POTASSIUM CHLORIDE 20 MEQ TABCR PO SCH (09:00)
[2018-08-31] MEDS ORDERED: ATORVASTATIN 20 MG TAB PO SCH (09:00)
== END 2018-08-30 17:50 | disposition home or self-care (01) | DRG 310 ==
LOC: ED 09:08 → 2E 11:39